=== PATIENT | male | born 1965 | race Caucasian/White ===

== ENCOUNTER → 2019-03-23 08:40 | Outpatient (BNVA) | payer BC, SELFPAY | PROVIDERS: Family Provider Family Medicine; PCP Family Medicine; Visit Provider Family Medicine | DX: Z12.11 Encounter for screening for malignant neoplasm of colon (principal); I10 Essential (primary) hypertension; K21.9 Gastro-esophageal reflux disease without esophagitis; F41.9 Anxiety disorder, unspecified; F17.219 Nicotine dependence, cigarettes, with unspecified nicotine-induced disorders | CPT/HCPCS: 80053; 80061; 82044; 85025 ==

== ENCOUNTER → 2019-03-24 16:06 | Outpatient (BNVA) | payer BC, SELFPAY | PROVIDERS: Family Provider Family Medicine; PCP Family Medicine; Visit Provider Family Medicine | DX: I10 Essential (primary) hypertension (principal); K21.9 Gastro-esophageal reflux disease without esophagitis; F41.9 Anxiety disorder, unspecified; Z12.11 Encounter for screening for malignant neoplasm of colon; F17.219 Nicotine dependence, cigarettes, with unspecified nicotine-induced disorders; D64.9 Anemia, unspecified | CPT/HCPCS: 82728; 83540; 83550 ==

== ENCOUNTER 2019-04-15 07:46 | Outpatient (CLI) | payer BC, SELFPAY ==
[2019-04-15 08:40] LABS: Basophils % 0.4 %; Eosinophils # 0.1 10^3/uL (0.0-0.8); Hematocrit 45.5 % (42.0-52.0); Hemoglobin 13.8 g/dL (11.7-16.6); Lymphocytes # 1.7 10^3/uL (0.8-4.8); Mean Corpuscular HGB Conc 30.3 g/dL (30.0-36.0); Mean Corpuscular Hemoglobin 20.4 pg (28.0-34.0); Mean Corpuscular Volume 67.4 fL (80-94); Mean Platelet Volume 12.2 fL (7.4-10.4); Monocytes # 0.7 10^3/uL (0.2-0.9); Monocytes % 6.6 %; Neutrophils # 7.6 10^3/uL (1.8-7.7); Neutrophils % 74.6 %; Nucleated Red Blood Cells % 0 %; Platelet Count 252 10^3/cmm (130-400); Red Blood Count 6.75 10^6/uL (4.1-5.3); Red Cell Distribution Width 17.7 % (12.1-15.1); White Blood Count 10.2 10^3/uL (4.0-10.0)
[2019-04-15 09:16] LABS: Slide Review Slide Review Perform
--- NOTE | 2019-04-15 10:52 | ONC CON_ITS ---
Dr. Islas New Patient Note Patient: Cristian Pacheco Unit #: [id number]: [id number] Dicatated By: Ana Maria Islas M.D.Date of Visit: Apr 15, 2019 Onc MED New Patient/Consult Referring Physician: Dr. DEEP RASCON D.O. History of Present Illness: Mr. Cristian Pacheco, 54-year-old gentleman with history of 'small red blood cell', as per patient about 20 years ago, in [facility], he was told about having small red blood cells, his sister also has small red blood cells and she was diagnosed with disease start with B.. Doesn't remember the full name. His mother also has same problem small red blood cells but normal hemoglobin. At that time no workup was done until recently on 03/23/2019 when his routine lab workup shows white blood count 9.2 hemoglobin 14.6 crit 48.2 platelets 212,000 and MCV 68.2 because of low MCV iron studies were ordered which showed normal iron studies, serum iron 151, transferrin saturation 44, TIBC 343, but ferritin was 702. And patient was referred to hematology clinic for evaluation of iron overload. Patient denies any history of iron supplements or blood transfusion patient denies any history of anemia. Patient denies any history of jaundice. Patient denies any history of melena hematochezia, denies any history of hemoptysis or hematemesis. Denies any shortness of breath denies any palpitation, denies any fever chills denies any night sweats, denies any weight loss. Patient has history of smoking for 30 years but quit on new year e.g. March 2019. Patient has 2 kids daughter and son and son has 2 kids too, all healthy and not aware of any hematological problem in his children. Past Medical History: Mr. Aivla medical history consists of anxiety, erectile dysfunction, gastroesophageal reflux disease, and hypertension. Past Surgical History: Mr. Avila surgical history is unremarkable. Medications: Lipitor 1 Tablet (of 10 mg) Oral daily, Metoprolol Succinate ER 1 Tablet (of 50 mg) Tablet SR 24 HR Oral daily Allergies: No Known Allergies. Social History: Mr. Pacheco is single. Mr. Pacheco quit smoking less than one year ago but had smoked for 20 years. He has no history of drinking. Mr. Pacheco reports the following support systems: lives with spouse, significant other, family, or friends, lives in own house, supportive family/friends willing to assist with needs, and adequate transportation available for expected visits. His diet consists of regular meals. He indicates his activity level as: regular exercise. Family History: Mr. Hannas mother at age 68: Alzheimer's disease. Mr. Hannas father at age 44: cancer of unknown primary. Review Of Symptoms: Constitutional - Appetite is good and weight is stable. No fever, chills, hot flashes, or night sweats. Energy level is good, ENMT - Positive for sinus congestion/drainage. No mouth sores. No sore throat or difficulty swallowing, Hematologic/Lymphatic - No abnormal bruising or bleeding, Respiratory - No shortness of breath. No cough. No pleuritic pain or hemoptysis, Cardiovascular - No angina pain. No palpitations, Gastrointestinal - No nausea or vomiting. No heartburn or acid reflux. No diarrhea or constipation. No blood in the stool or black stools, Genitourinary (M) - No dysuria or hematuria. No urinary frequency. No urgency or incontinence, Musculoskeletal - No joint or bone pain, Neurologic - No headache or dizziness. No numbness/paresthesias or other focal neurologic symptoms, Psychiatric - Positive for anxiety, no depression. No insomnia. Vital Signs: Performed on Apr 15, 2019 09:51: 0, 26.56, 2.07 sq.m, 71.00 in, 98 %, 114 /min (HIGH), 26 /min, 164/100 mm(hg) (HIGH), 98.6 F, and 190.4 lbs (HIGH). Performance Status: 0 - Fully active, able to carry on all predisease activities without restrictions. (ECOG) Physical Examination: ENMT - No oral exudates, ulcers, masses, thrush or mucositis. Oropharynx clear. Tongue normal, Hematologic/Lymphatic - No petechiae or purpura. No tender or palpable lymph nodes in the cervical, supraclavicular, axillary or inguinal area, Respiratory - Lungs are clear to auscultation without rhonchi or wheezing, Cardiovascular - Regular rate and rhythm of heart, Abdomen - Non-tender, non-distended, Good bowel sounds. No guarding or rebound tenderness. No pulsatile masses, Extremities - no edema. Lab/Imaging: Most recent lab results are not available for this patient. Impression: Microcytosis with a normal hemoglobin and iron stores rather elevated ferritin level, most likely due to hemoglobinopathy like thalassemia minor or myelodysplasia but less likely especially with normal hemoglobin.CBC done on 03/23/2019, showed white blood count 9.2 hemoglobin 14.6 crit 48.2 platelets 212,000 MCV 68.2 bilirubin 0.7, with normal iron studies, iron 151, TIBC 343, TSAT 44, ferritin 702. Sister and mother with small red blood cells probably due to hemoglobinopathy like thalassemia Plan: Discussed with patient regarding his labs white blood count 10.2 hemoglobin 13.8 crit 45.5 platelets 252,000 MCV 67.4 with a normal differential Clinically, patient denies any symptoms and his CBC shows normal hemoglobin, platelets and white blood cell with a differential but low MCV consistent with microcytosis and iron studies done by PMD showed normal iron studies but elevated ferritin level and family history of microcytosis in sister and mother most likely consistent with hemoglobinopathy like thalassemia, in patient with normal hemoglobin, thalassemia minor is a most likely etiology Patient has elevated ferritin, most likely due to hemoglobinopathy causing ineffective erythropoiesis as patient has no signs symptoms suggestive of inflammation or liver disease. And with calculated TSAT less than 45, iron overload is very unlikely even with elevated ferritin level. At this point we'll proceed with hemoglobin electrophoresis to confirm hemoglobinopathy like thalassemia and patient return to clinic in one month for further discussion. Patient was also encouraged to get his children evaluated for any hemoglobinopathy. Signed By: Ana Maria Islas M.D. <<Signature on File>>
== END 2019-04-15 07:47 | disposition home or self-care (01) ==
LOC: ONCMED 07:52
PROVIDERS: Family Provider Family Medicine; PCP Family Medicine; Referring Provider Family Medicine; Visit Provider Internal Medicine Hematology & Oncology
DX: D58.2 Other hemoglobinopathies (principal); F41.9 Anxiety disorder, unspecified; K21.9 Gastro-esophageal reflux disease without esophagitis; I10 Essential (primary) hypertension; Z87.891 Personal history of nicotine dependence; Z79.899 Other long term (current) drug therapy
CPT/HCPCS: 36415; 83021; 85025; 99205

== ENCOUNTER 2019-05-25 10:59 | Outpatient (CLI) | payer BC, SELFPAY ==
--- NOTE | 2019-05-25 14:26 | ONC FU_ITS ---
Dr. Islas follow up note Patient: Cristian Pacheco Unit #: [id number]: [id number] Dicatated By: Ana Maria Islas M.D.Date of Visit:May 25, 2019 Onc Med Follow-up/Prog Note History of Present Illness: Mr. Cristian Pacheco, 54-year-old gentleman with history of 'small red blood cell', as per patient about 20 years ago, in [facility], he was told about having small red blood cells, his sister also has small red blood cells and she was diagnosed with disease start with B.. Doesn't remember the full name. His mother also has same problem small red blood cells but normal hemoglobin. At that time no workup was done until recently on 03/23/2019 when his routine lab workup shows white blood count 9.2 hemoglobin 14.6 crit 48.2 platelets 212,000 and MCV 68.2 because of low MCV iron studies were ordered which showed normal iron studies, serum iron 151, transferrin saturation 44, TIBC 343, but ferritin was 702. And patient was referred to hematology clinic for evaluation of iron overload. Patient denies any history of iron supplements or blood transfusion patient denies any history of anemia. Patient denies any history of jaundice. Patient denies any history of melena hematochezia, denies any history of hemoptysis or hematemesis. Denies any shortness of breath denies any palpitation, denies any fever chills denies any night sweats, denies any weight loss. Patient has history of smoking for 30 years but quit on new year e.g. March 2019. Patient has 2 kids daughter and son and son has 2 kids too, all healthy and not aware of any hematological problem in his children. Came for follow-up, denies any specific complaint except hot flashes, as per patient he has no testosterone level and now trying supplements but to than that no fever or chills no nausea or vomiting no sore throat no shortness of breath no dysuria. No melena or hematochezia. Medications: Acid Control 1 Tablet (of 150 mg) Oral daily, Lipitor 1 Tablet (of 10 mg) Oral daily, Metoprolol Succinate ER 1 Tablet (of 50 mg) Tablet SR 24 HR Oral daily Allergies: No Known Allergies. Review of Systems: Constitutional - Appetite is good and weight is stable. Positive for fever. No chills, hot flashes, or night sweats. Energy level is good, ENMT - Negative for sinus congestion/drainage. No mouth sores. No sore throat or difficulty swallowing, Hematologic/Lymphatic - No abnormal bruising or bleeding, Respiratory - No shortness of breath. No cough. No pleuritic pain or hemoptysis, Cardiovascular - No angina pain. No palpitations, Gastrointestinal - No nausea or vomiting. No heartburn or acid reflux. No diarrhea or constipation. No blood in the stool or black stools, Genitourinary (M) - No dysuria or hematuria. No urinary frequency. No urgency or incontinence, Musculoskeletal - No joint or bone pain, Neurologic - No headache or dizziness. No numbness/paresthesias or other focal neurologic symptoms, Psychiatric - Positive for anxiety, no depression. No insomnia. Vital Signs: Performed on May 25, 2019 11:11 Height - 71.00 in Temperature - 100.2 F (HIGH) Pulse - 114 /min (HIGH) Respiration - 18 /min BP - 155/91 mm(hg) (HIGH) O2 Sat - 96 % Pain - 0 Performance Status: 0 - Fully active, able to carry on all predisease activities without restrictions. (ECOG) Physical Examination: Physical Exam-Comments is not available for this patient. Lab/Imaging: Test performed on Apr 15, 2019 08:00 WBC 10.2 10 3/uL RBC 6.75 10 6/uL HGB 13.8 g/dL HCT 45.5 % MCV 67.4 fL MCH 20.4 pg MCHC 30.3 g/dL RDW 17.7 % Platelet Count 252 10 3/cmm MPV 12.2 fL Neutrophils 7.6 10 3/uL Lymphocytes 1.7 10 3/uL Monocytes 0.7 10 3/uL Eosinophils 0.1 10 3/uL Basophils 0.0 10 3/uL Neutrophil % 74.6 % Lymphocyte % 17.0 % Monocyte % 6.6 % Eosinophil % 1.0 % Basophils % 0.4 % CBC Slide Review Slide Review Perform SLIDE REVIEW AGREES WITH AUTOMATED RESULTS ST Impression: beta thalassemia trait causing Microcytosis with a normal hemoglobin and iron stores rather elevated ferritin level, CBC done on 03/23/2019, showed white blood count 9.2 hemoglobin 14.6 crit 48.2 platelets 212,000 MCV 68.2 bilirubin 0.7, with normal iron studies, iron 151, TIBC 343, TSAT 44, ferritin 702. hemoglobin electrophoresis done on 04/15/2019 confirmed beta thalassemia trait Sister and mother with small red blood cells probably due to hemoglobinopathy like thalassemia Plan: Discussed with patient regarding hemoglobin electrophoresis results which showed elevated hemoglobin A2, is 5.2% compared to normal range 1.8-3.5% and with low MCV or surrogate marker for better thalassemia trait. , Patient has family history e.g. sister and mother with history of 'small Red cells' Clinically, patient has no symptoms and in his hemoglobin is in normal range and only lab abnormalities macrocytosis which is due to beta thalassemia trait, so no further workup is needed and rather genetic counseling especially for his children if positive for beta thalassemia trait. Patient will think about this and talk his primary care physician. His vitals showed low-grade fever at 100.2f, patient denies any shortness of breath or cough, patient denies any chills, patient denies any exposure to any body with flulike symptoms. Patient denies any history of traveling. Patient said during hot flashes due to low testosterone level sometime he feels warm and he is having hot flashes at present. Patient was advised in case his fever persist or there is a worsening then he need to go to hospital immediately for evaluation. Patient was advised to stay home, was also discussed with infectious disease nursing designated to handle coronavirus patient. We will see him on as-needed basis. Signed By: Ana Maria Islas M.D. <<Signature on File>>
== END 2019-05-25 11:00 | disposition home or self-care (01) ==
LOC: ONCMED 10:59
PROVIDERS: Family Provider Family Medicine; PCP Family Medicine; Visit Provider Internal Medicine Hematology & Oncology
DX: D56.3 Thalassemia minor (principal); Z87.891 Personal history of nicotine dependence; Z79.899 Other long term (current) drug therapy
CPT/HCPCS: 99212

== ENCOUNTER → 2019-09-30 08:19 | Outpatient (BNVA) | payer BC, SELFPAY | PROVIDERS: Family Provider Family Medicine; PCP Family Medicine; Visit Provider Family Medicine | DX: I10 Essential (primary) hypertension (principal); Z12.5 Encounter for screening for malignant neoplasm of prostate | CPT/HCPCS: 80053; 80061; G0103 ==

== ENCOUNTER → 2019-11-24 15:50 | Outpatient (BNVA) | payer BC, SELFPAY | PROVIDERS: Family Provider Family Medicine; PCP Family Medicine; Visit Provider Nurse Practitioner | DX: Z11.59 Encounter for screening for other viral diseases (principal) | CPT/HCPCS: 87635 ==

== ENCOUNTER → 2020-08-25 08:19 | Outpatient (BNVA) | payer BC, SELFPAY | PROVIDERS: Family Provider Family Medicine; PCP Family Medicine; Visit Provider Family Medicine | DX: I10 Essential (primary) hypertension (principal); Z12.5 Encounter for screening for malignant neoplasm of prostate; F17.229 Nicotine dependence, chewing tobacco, with unspecified nicotine-induced disorders | CPT/HCPCS: 80053; 80061; 82043; 85025; G0103 ==

== ENCOUNTER → 2021-03-20 09:03 | Outpatient (BNVA) | payer BC, SELFPAY | PROVIDERS: Family Provider Family Medicine; PCP Family Medicine; Visit Provider Family Medicine | DX: E78.5 Hyperlipidemia, unspecified (principal); I10 Essential (primary) hypertension; K21.9 Gastro-esophageal reflux disease without esophagitis | CPT/HCPCS: 80053; 80061 ==

== ENCOUNTER → 2021-10-09 08:58 | Outpatient (BNVA) | payer BC, SELFPAY | PROVIDERS: Family Provider Family Medicine; PCP Family Medicine; Visit Provider Family Medicine | DX: I10 Essential (primary) hypertension (principal); E78.5 Hyperlipidemia, unspecified; Z12.11 Encounter for screening for malignant neoplasm of colon; K21.9 Gastro-esophageal reflux disease without esophagitis; F17.229 Nicotine dependence, chewing tobacco, with unspecified nicotine-induced disorders; Z12.5 Encounter for screening for malignant neoplasm of prostate | CPT/HCPCS: 80053; 80061; 82043; 85025; G0103 ==

== ENCOUNTER → 2021-10-11 05:58 | Outpatient (BNVA) | payer BC, SELFPAY | PROVIDERS: Family Provider Family Medicine; PCP Family Medicine; Visit Provider Family Medicine | DX: I10 Essential (primary) hypertension (principal); Z12.5 Encounter for screening for malignant neoplasm of prostate; E78.5 Hyperlipidemia, unspecified; K21.9 Gastro-esophageal reflux disease without esophagitis; Z12.11 Encounter for screening for malignant neoplasm of colon; F17.229 Nicotine dependence, chewing tobacco, with unspecified nicotine-induced disorders; R73.09 Other abnormal glucose | CPT/HCPCS: 83036 ==

== ENCOUNTER → 2022-07-09 08:51 | Outpatient (BNVA) | payer BC, SELFPAY | PROVIDERS: Family Provider Family Medicine; PCP Family Medicine; Visit Provider Family Medicine | DX: E78.5 Hyperlipidemia, unspecified (principal) | CPT/HCPCS: 80053; 80061 ==

== ENCOUNTER 2022-10-31 06:24 | Day surgery (SDC) | payer BC, SELFPAY ==
[2022-10-31 06:35] VITALS: BP 216/112; PULSE 122; RESP 18; TEMP 36.3; O2SAT 97
[2022-10-31 06:53] VITALS: BP 160/96
[2022-10-31] MEDS: sodium chloride 0.9% 1,000 ML 30 ML IV (07:06)
--- NOTE | 2022-10-31 07:18 | ANES.PREANE2 ---
Pre-Anesthetic Assessment Height/Weight: Height 1.8 m Weight 97.522 kg Temp Pulse Resp BP Pulse Ox O2 Del Method 97.3 F L 122 H 18 160/96 97 Room Air 10/31/22 06:35 10/31/22 06:35 10/31/22 06:35 10/31/22 06:53 10/31/22 06:35 10/31/22 06:35 Preop Diagnosis: screening Operation Date: 10/31/22 07:30 Proposed Procedures p Colonoscopy 40843,R19.5, Z12.11(Not Applicable) - Odell Stone DO Familial anesthetic complications: none Was Beta Berry taken within 24 hours: Yes Was Clonidine taken within 24 hours: N/A Last intake: Intake Last Liquid Date 10/30/22 Last Liquid Time 21:00 Last Solid Date 10/29/22 Last Solid Time 18:00 Last Intake: 21:00 Social Tobacco (chew) and No alcohol Exam alert, oriented x 3, clear to auscultation bilaterally and regular rate & rhythm Airway Submandibular: within normal limits Cervical ROM: within normal limits Mallampati: Class II Dentition: full (very poor multiple missing and decayed) Pulmonary None reported CV/HEM Hypertension None reported Hepatic None reported GI Gastroesophageal Reflux Disease Metabolic None reported Musc/skel None reported Neuropsych Anxiety Anesthetic Plan ASA status: 2 Anesthesia: MAC Risk of > 500 ml blood loss (7ml/kg in children): No Medications/Allergies Home Medications Medication Instructions Recorded Confirmed Last Taken Type atorvastatin 40 mg tablet 40 mg PO .at bedtime #90 tabs 04/09/22 10/31/22 10/29/22 Rx metoprolol succinate 50 mg 50 mg PO QDAY #90 tabs 07/09/22 10/31/22 10/30/22 Rx tablet,extended release 24 hr pantoprazole 40 mg tablet,delayed 40 mg PO BID 6 weeks #84 tabs 09/11/22 10/31/22 10/30/22 Rx release (Protonix) Allergies Allergy/AdvReac Type Severity Reaction Status Date / Time No Known Allergies Allergy Verified 09/11/22 12:03 Current Medications Generic Name Dose Route Start Last Admin Trade Name Freq PRN Reason Stop Dose Admin Sodium Chloride 1,000 mls @ 30 mls/hr 10/31/22 06:30 10/31/22 07:06 Sodium Chloride 0.9% IV 11/01/22 06:29 30 mls/hr .Q24H SHAWN Administration PFSH Anesthesia Medical History Benign essential HTN Dental caries Dyslipidemia Dysphagia Erectile dysfunction MELITON (generalized anxiety disorder) GERD (gastroesophageal reflux disease) Thalassemia minor Surgical History No pertinent past surgical history Family History Father Cancer Mother Alzheimer disease Social History Smoking and tobacco status: former smoker Alcohol intake: former Substance/Drug Use: former Household members: significant other service: No Current occupational status: employed Current gender identity: Male Data Anesthesia Cardiac Studies: No Data to Display
--- NOTE | 2022-10-31 07:30 | PM.HP ---
Providers/Chief Complaint Primary Care Provider: Chikis Cisneros DO Chief Complaint: positive cologuard History of Present Illness Cristian Pacheco is a 57 year old male Medications/Allergies Home Medications Medication Instructions Recorded Confirmed Last Taken Type atorvastatin 40 mg tablet 40 mg PO .at bedtime #90 tabs 04/09/22 10/31/22 10/29/22 Rx metoprolol succinate 50 mg 50 mg PO QDAY #90 tabs 07/09/22 10/31/22 10/30/22 Rx tablet,extended release 24 hr pantoprazole 40 mg tablet,delayed 40 mg PO BID 6 weeks #84 tabs 09/11/22 10/31/22 10/30/22 Rx release (Protonix) Allergies Allergy/AdvReac Type Severity Reaction Status Date / Time No Known Allergies Allergy Verified 09/11/22 12:03 PFSH Acute PFSH: Medical History Benign essential HTN Dental caries Dyslipidemia Dysphagia Erectile dysfunction MELITON (generalized anxiety disorder) GERD (gastroesophageal reflux disease) Thalassemia minor Surgical History No pertinent past surgical history Family History Father Cancer Mother Alzheimer disease Social History Smoking and tobacco status: former smoker Alcohol intake: former Substance/Drug Use: former Household members: significant other service: No Current occupational status: employed Current gender identity: Male Vitals/I&O/Wt Last Vital Signs Temp 97.3 F L 10/31/22 06:35 Pulse 122 H 10/31/22 06:35 Resp 18 10/31/22 06:35 BP 160/96 10/31/22 06:53 Pulse Ox 97 10/31/22 06:35 O2 Del Method Room Air 10/31/22 06:35 Weight last 48 hrs Weight 215 lb A&P Assessment and plan (1) Positive colorectal cancer screening using Cologuard test: Plan Colonoscopy Attestations Medical Necessity Statement*: home Coding Level of Care Code Acute Code for Chg Fwd Diagnoses Positive colorectal cancer screening using Cologuard test R19.5
[2022-10-31 08:03] VITALS: BP 119/81; PULSE 87; RESP 18; TEMP 36.2; O2SAT 94
[2022-10-31 08:15] VITALS: BP 120/80; PULSE 82; RESP 16; O2SAT 96
--- NOTE | 2022-10-31 08:30 | ANE.PACU2 ---
Inpatient post-anesthesia follow up: Airway intact: Yes Vital signs: Temperature 97.2 F Pulse Rate 82 Respiratory Rate 16 Blood Pressure 120/80 Pulse Oximetry 96 Oxygen Delivery Me thod Room Air Oxygen Flow Rate Fraction of Inspir ed Oxygen Hydration adequate: Yes Nausea and vomiting: No Pain level: 1 Mental status: Baseline
== END 2022-10-31 08:32 | disposition home or self-care (01) ==
PROVIDERS: PCP Family Medicine; Visit Provider Surgery
PROC: 0DJD8ZZ Inspection of Lower Intestinal Tract, Via Natural or Artificial Opening Endoscopic (ICD-10-PCS; CPT 45378; principal; 2022-10-31 07:30)
DX: Z12.11 Encounter for screening for malignant neoplasm of colon (principal); R19.5 Other fecal abnormalities; D12.5 Benign neoplasm of sigmoid colon; F17.220 Nicotine dependence, chewing tobacco, uncomplicated; I10 Essential (primary) hypertension; K21.9 Gastro-esophageal reflux disease without esophagitis; E78.5 Hyperlipidemia, unspecified
CPT/HCPCS: 45385; 88305; J2704; J7030

== ENCOUNTER → 2023-01-07 08:42 | Outpatient (BNVA) | payer BC, SELFPAY | PROVIDERS: PCP Family Medicine; Visit Provider Family Medicine | DX: I10 Essential (primary) hypertension (principal); K21.9 Gastro-esophageal reflux disease without esophagitis; Z12.5 Encounter for screening for malignant neoplasm of prostate | CPT/HCPCS: 80053; 81000; 85025; G0103 ==

== ENCOUNTER 2023-02-01 09:47 | Day surgery (SDC) | payer BC, SELFPAY ==
[2023-02-01 10:00] VITALS: BP 196/137; PULSE 96; RESP 18; TEMP 36.7; O2SAT 97; BMI 30.7
[2023-02-01] MEDS: sodium chloride 0.9% 1,000 ML 30 ML IV (10:11)
--- NOTE | 2023-02-01 10:13 | ANES.PREANE2 ---
Pre-Anesthetic Assessment Height/Weight: Height 1.8 m Weight 99.79 kg Temp Pulse Resp BP Pulse Ox O2 Del Method 98.0 F 96 18 196/137 97 Room Air 02/01/23 10:00 02/01/23 10:00 02/01/23 10:00 02/01/23 10:00 02/01/23 10:00 02/01/23 10:00 Preop Diagnosis: bloating Operation Date: 02/01/23 11:00 Proposed Procedures p 18483 egd R14.0(Not Applicable) - Odell Stone DO Familial anesthetic complications: none Was Beta Berry taken within 24 hours: Yes Was Clonidine taken within 24 hours: N/A Last intake: Intake Last Liquid Date 01/31/23 Last Liquid Time 20:00 Last Solid Date 01/31/23 Last Solid Time 20:00 Social Tobacco (chew) and No alcohol Exam alert, oriented x 3, clear to auscultation bilaterally and regular rate & rhythm Airway Submandibular: within normal limits Cervical ROM: within normal limits Mallampati: Class II Dentition: chipped and loose Comments: Comments: very poor dentition Pulmonary None reported CV/HEM Hypertension None reported Hepatic None reported GI Gastroesophageal Reflux Disease (controlled) Metabolic Hyperlipidemia [facility] None reported Neuropsych Anxiety Anesthetic Plan ASA status: 2 Anesthesia: MAC Risk of > 500 ml blood loss (7ml/kg in children): No Medications/Allergies Home Medications Medication Instructions Recorded Confirmed Last Taken Type metoprolol succinate 50 mg 50 mg PO QDAY #90 tabs 01/07/23 02/01/23 01/30/23 Rx tablet,extended release 24 hr Allergies Allergy/AdvReac Type Severity Reaction Status Date / Time No Known Allergies Allergy Verified 02/01/23 09:59 Current Medications Generic Name Dose Route Start Last Admin Trade Name Freq PRN Reason Stop Dose Admin Sodium Chloride 1,000 mls @ 30 mls/hr 02/01/23 10:00 02/01/23 10:11 Sodium Chloride 0.9% IV 02/02/23 09:59 30 mls/hr .Q24H SHAWN Administration PFSH Anesthesia Medical History Benign essential HTN Dental caries Dyslipidemia Dysphagia Erectile dysfunction MELITON (generalized anxiety disorder) GERD (gastroesophageal reflux disease) Thalassemia minor Surgical History No pertinent past surgical history Family History Father Cancer Mother Alzheimer disease Social History Smoking and tobacco/nicotine status: former use of tobacco/nicotine Alcohol intake: former Substance/Drug Use: former Household members: significant other service: No Current occupational status: employed Current gender identity: Male Data Anesthesia Cardiac Studies: No Data to Display
--- NOTE | 2023-02-01 11:12 | W.PM.OPSUD ---
Surgery/Procedure H&P Update DATE OF PROCEDURE: February 01, 2023 DATE H&P PERFORMED: 01/15/23 H&P UPDATE INFORMATION: I have reviewed H&P completed within last 30 days, I have examined patient prior to procedure and No changes to prior documentation PREOP DIAGNOSIS: bloating PLANNED PROCEDURE: Operation Date: 02/01/23 11:00 Proposed Procedures p 20629 egd R14.0(Not Applicable) - Odell Stone DO
[2023-02-01 11:29] VITALS: BP 120/85; PULSE 80; RESP 16; TEMP 36.1; O2SAT 94
[2023-02-01 11:39] VITALS: BP 158/95; PULSE 76; RESP 16; O2SAT 95
--- NOTE | 2023-02-01 13:34 | ANE.PACU2 ---
Inpatient post-anesthesia follow up: Airway intact: Yes Vital signs: Temperature 97.0 F Pulse Rate 76 Respiratory Rate 16 Blood Pressure 158/95 Pulse Oximetry 95 Oxygen Delivery Me thod Room Air Oxygen Flow Rate Fraction of Inspir ed Oxygen Hydration adequate: Yes Nausea and vomiting: No Pain level: 1 Mental status: Baseline
== END 2023-02-01 11:50 | disposition home or self-care (01) ==
PROVIDERS: PCP Family Medicine; Visit Provider Surgery
PROC: 0DJ08ZZ Inspection of Upper Intestinal Tract, Via Natural or Artificial Opening Endoscopic (ICD-10-PCS; CPT 43235; principal; 2023-02-01 11:00)
DX: R14.0 Abdominal distension (gaseous) (principal); K29.50 Unspecified chronic gastritis without bleeding; I10 Essential (primary) hypertension; E78.5 Hyperlipidemia, unspecified; Z87.891 Personal history of nicotine dependence
CPT/HCPCS: 43239; 88305; 88342; J2704; J7030

== ENCOUNTER 2023-03-19 08:31 | Outpatient (CLI) | payer BC, SELFPAY ==
--- NOTE | 2023-03-19 09:00 | US_ITS ---
WS: [id number] RIGHT UPPER QUADRANT ULTRASOUND HISTORY: epigastric pain COMPARISON: None available. Liver: 21.4 cm in length. Moderately enlarged liver with coarse echotexture. Hepatic steatosis. The e ntire liver is not well visualized due to attenuation. No mass identified. Portal Vein: Normal hepatopetal flow with monophasic waveform. Gallbladder: Normally distended gallbladder with no stones or wall thickening. CBD: 0.5 cm Pancreas: Poorly visualized. Right kidney: 11.2 cm in length. Normal size and echogenicity. No hydronephrosis or mass. Aorta and IVC: Unremarkable abdominal aorta and IVC. No ascites. IMPRESSION: 1. Moderate hepatomegaly and hepatic steatosis. The entire liver is not well visualized due to atten uation. 2. Normal gallbladder.
== END 2023-03-19 08:32 | disposition home or self-care (01) ==
LOC: RAD 08:32
PROVIDERS: PCP Family Medicine; Visit Provider Surgery
DX: R10.13 Epigastric pain (principal); K76.0 Fatty (change of) liver, not elsewhere classified
CPT/HCPCS: 76705

== ENCOUNTER 2023-05-03 07:36 | Outpatient (CLI) | payer BC, SELFPAY ==
--- NOTE | 2023-05-03 08:00 | NM_ITS ---
WS: [id number] NUCLEAR MEDICINE HIDA SCAN WITH GALLBLADDER EJECTION FRACTION HISTORY: epigastric pain COMPARISON: Gallbladder ultrasound 03/19/2023 TECHNIQUE: The patient was intravenously injected with 7.7 mCi of TC99m Mebrofenin. Immediate imaging over the right upper quadrant was followed by 5 minute image and additional images for a total of 60 minutes. Normal uptake of radiotracer throughout the liver. Liver does appear slightly enlarged as indicated o n the prior ultrasound. Activity identified in the gallbladder at 10 minutes and well distended by 60 minutes. Activity in the proximal small bowel was seen by 20 minutes. Good washout of the radiotracer from the liver by 60 minutes. The patient then drank 8 ounces of Ensure Plus. No gallbladder ejection fraction. The gallbladder did not contract after the fatty meal. Post fatty meal symptoms: None. IMPRESSION: 1. No common bile duct obstruction. 2. Abnormal gallbladder contraction. After a fatty meal the gallbladder did not contract. Most likel y chronic cholecystitis or gallbladder dyskinesia. There is no gallbladder contraction.
== END 2023-05-03 07:37 | disposition home or self-care (01) ==
PROVIDERS: PCP Family Medicine; Visit Provider Surgery
DX: R10.13 Epigastric pain (principal); K82.0 Obstruction of gallbladder
CPT/HCPCS: 78227; A9537

== ENCOUNTER 2023-07-04 09:59 | Day surgery (SDC) | payer BC, SELFPAY ==
[2023-07-04] VITALS (10 sets, daily range): BP systolic 145–190; BP diastolic 85–110; PULSE 65–96; RESP 16–20; TEMP 36.3–37.4; O2SAT 93–99; BMI 29.9
--- NOTE | 2023-07-04 10:35 | P.ANESASSM_ITS ---
Pre-Anesthetic Assessment Height/Weight: Height 1.8 m Weight 97.522 kg Temp Pulse Resp BP Pulse Ox O2 Del Method 99.3 F 96 18 190/110 99 Room Air 07/04/23 10:07/04/23 10:07/04/23 10:07/04/23 10:07/04/23 10:07/04/23 10:25 Operation Date: 07/04/23 12:00 Proposed Procedures p Laparoscopic Cholecystectomy 62756, K82.8(Not Applicable) - Odell Stone DO Last intake: Intake Last Liquid Date 07/03/23 Last Liquid Time 19:00 Last Solid Date 07/03/23 Last Solid Time 17:00 Social Tobacco (Chews) and No alcohol Exam alert, oriented x 3, clear to auscultation bilaterally and regular rate & rhythm Airway Submandibular: within normal limits Cervical ROM: within normal limits Mallampati: Class II Comments: Comments: Profound dental disease CV/HEM Hypertension Anesthetic Plan ASA status: 2 Anesthesia: General Medications/Allergies Home Medications Medication Instructions Recorded Confirmed Last Taken Type metoprolol succinate 50 mg 50 mg PO QDAY #90 tabs 01/07/23 07/04/23 07/04/23 Rx tablet,extended release 24 hr Allergies Allergy/AdvReac Type Severity Reaction Status Date / Time No Known Allergies Allergy Verified 06/27/23 10:29 [facility] Anesthesia Medical History MELITON (generalized anxiety disorder) Dysphagia Dental caries Dyslipidemia Thalassemia minor Benign essential HTN GERD (gastroesophageal reflux disease) Erectile dysfunction Surgical History History of esophagogastroduodenoscopy (EGD) Hx of colonoscopy with polypectomy No pertinent past surgical history Family History Father Cancer Mother Alzheimer disease Social History Smoking and tobacco/nicotine status: former use of tobacco/nicotine Alcohol intake: former Substance/Drug Use: former Household members: significant other service: No Current occupational status: employed Current gender identity: Male Data Anesthesia Cardiac Studies: No Data to Display
[2023-07-04] MEDS: sodium chloride 0.9% 1,000 ML 30 ML IV (11:00)
--- NOTE | 2023-07-04 11:28 | W.PM.OPSUD ---
Surgery/Procedure H&P Update DATE OF PROCEDURE: July 04, 2023 DATE H&P PERFORMED: 06/27/23 H&P UPDATE INFORMATION: I have reviewed H&P completed within last 30 days, I have examined patient prior to procedure and No changes to prior documentation PLANNED PROCEDURE: Operation Date: 07/04/23 12:00 Proposed Procedures p Laparoscopic Cholecystectomy 30388, K82.8(Not Applicable) - Odell Stone DO
[2023-07-04] MEDS: ceFAZolin 2,000 MG in sodium chloride 0.9% (plus) 50 ML 100 MG IV (12:05)
[2023-07-04] MEDS: lidocaine-epi 2% PF 1:200,000 20 mL SDV 10 ML XX (12:41)
--- NOTE | 2023-07-04 12:50 | P.OP_ITS ---
Operative Report Date of procedure: July 04, 2023 Surgeon: Odell Stone DO Brief History: This very pleasant 58-year-old gentleman came to my office with abdominal pain. He is diagnosed with biliary dyskinesia. Laparoscopic cholecystectomy is indicated. The risks and benefits were explained and documented. Procedure: Preoperative diagnosis: Biliary dyskinesia Postoperative diagnosis: Same Procedure performed: Laparoscopic cholecystectomy Surgeon: Dr. Odell Stone DO Estimated blood loss: 5 mL Specimens: Gallbladder to pathology Complications: None apparent Description of procedure: Patient was wheeled into the operative room and placed on the OR table in a supine position. Abdomen was inspected prepped and draped in usual sterile fashion. Time-out was performed and all present were in agreement. A 15 blade scalp was used to make a stab incision in the left upper quadrant and intra- abdominal insufflation was achieved using a Veress needle. After localizing the tissue incisions were made and a 5 millimeter trocar was placed into the umbilicus as well as 2 in the right upper quadrant. A 12 millimeter trocar was placed in the epigastrium. Gallbladder was grasped and elevated. The triangle of Calot was carefully dissected using blunt dissection and electrocautery until the triangle of Calot clearly identified. The cystic duct was clipped proximal ly and double clipped distally. The duct was then ligated proximally. The cystic artery was doubly clipped and ligated. The gallbladder was then removed from the liver bed using electrocautery. The gallbladder was removed from the abdomen using an Endo-Catch bag through the epigastric incision. The liver bed was inspected and no bleeding was seen. The abdomen was irrigated and suctioned. All ports removed. Skin was washed and dried. Incisions were closed with 4-0 Monocryl in a subcuticular interrupted fashion. Skin glue was applied. Patient tolerated the procedure well.
--- NOTE | 2023-07-04 14:57 | ANE.PACU2 ---
Inpatient post-anesthesia follow up: Vital signs: Temperature 97.7 F Pulse Rate 74 Respiratory Rate 17 Blood Pressure 151/90 Pulse Oximetry 94 Oxygen Delivery Me thod Room Air Oxygen Flow Rate 3 Fraction of Inspir ed Oxygen Hydration adequate: Yes Nausea and vomiting: No Pain level: 5 Mental status: Baseline
== END 2023-07-04 14:40 | disposition home or self-care (01) ==
PROVIDERS: PCP Family Medicine; Visit Provider Surgery
PROC: 0FT44ZZ Resection of Gallbladder, Percutaneous Endoscopic Approach (ICD-10-PCS; CPT 47562; principal; 2023-07-04 12:00)
DX: K81.1 Chronic cholecystitis (principal); F17.220 Nicotine dependence, chewing tobacco, uncomplicated; I10 Essential (primary) hypertension; F41.1 Generalized anxiety disorder; E78.5 Hyperlipidemia, unspecified
CPT/HCPCS: 47562; 88304; J0690; J1100; J1885; J2405; J2704; J3010; J7030

== ENCOUNTER → 2023-07-11 08:25 | Outpatient (BNVA) | payer BC, SELFPAY | PROVIDERS: PCP Family Medicine; Visit Provider Family Medicine | DX: I10 Essential (primary) hypertension (principal); Z13.6 Encounter for screening for cardiovascular disorders | CPT/HCPCS: 85025 ==

== ENCOUNTER → 2023-11-20 08:27 | Outpatient (BNVA) | payer BC, SELFPAY | DX: E78.5 Hyperlipidemia, unspecified (principal) | CPT/HCPCS: 80053; 80061 ==

== ENCOUNTER → 2024-07-14 08:43 | Outpatient (BNVA) | payer BC, SELFPAY | DX: E78.5 Hyperlipidemia, unspecified (principal); I10 Essential (primary) hypertension | CPT/HCPCS: 80053; 80061 ==

== ENCOUNTER → 2025-01-19 09:04 | Outpatient (BNVA) | payer BC, SELFPAY | DX: I10 Essential (primary) hypertension (principal); Z12.5 Encounter for screening for malignant neoplasm of prostate | CPT/HCPCS: 80053; 80061; 84403; 84443; 85651; G0103 ==